=== PATIENT | female | born 1980 | race Caucasian/White ===

== ENCOUNTER 2020-04-24 06:14 | Inpatient (IN) | payer OTHER | END 2020-04-26 14:20 | disposition home or self-care (01) | DRG 807 | LOC: LDR 06:14 → SURG-SUITE 18:03 | PROVIDERS: ADMIT Obstetrics & Gynecology Maternal & Fetal Medicine | PROC: 10D07Z6 Extraction of Products of Conception, Vacuum, Via Natural or Artificial Opening (ICD-10-PCS; principal; 2020-04-24) | PROC: 0KQM0ZZ Repair Perineum Muscle, Open Approach (ICD-10-PCS; 2020-04-24) | PROC: 0W8NXZZ Division of Female Perineum, External Approach (ICD-10-PCS; 2020-04-24) | PROC: 4A1HXCZ Monitoring of Products of Conception, Cardiac Rate, External Approach (ICD-10-PCS; 2020-04-24) | PROC: 3E033VJ Introduction of Other Hormone into Peripheral Vein, Percutaneous Approach (ICD-10-PCS; 2020-04-24) | DX: O70.1 Second degree perineal laceration during delivery (principal); Z37.0 Single live birth; O66.5 Attempted application of vacuum extractor and forceps; Z3A.39 39 weeks gestation of pregnancy; Z22.330 Carrier of Group B streptococcus ==